=== PATIENT | female | born 1965 | race Caucasian/White ===

== ENCOUNTER → 2019-11-11 11:37 | Outpatient (CLI) | payer BC, SELFPAY ==
--- NOTE | 2019-11-11 | DI.MRI.S_ITS ---
PROCEDURE: MR LUMBAR SPINE WO CON INDICATIONS: Radiculopathy, lumbar region TECHNIQUE: Noncontrast sagittal T1 spin echo and T2 fast echo, sagittal STIR, axial T1 and T2 fast spin echo through the lumbar spine. In cases with scoliosis, additional coronal T2 fast spin echo may be performed. COMPARISON: None. FINDINGS: Image quality: Excellent. Alignment and Curvature: No plain films are available for comparison, for numbering purposes. Thus, for the purposes of this examination, 5 lumbar type vertebral bodies will be presumed, as denoted on the montage panel. This should be confirmed and correlated with plain films, prior to any lumbar spinal intervention. There is mild grade 1 retrolisthesis of L1 on L2. Bone Marrow: Marrow is of normal overall signal. No acute vertebral body compression fractures. Mild reactive signal within the endplates adjacent to the L1-L2 intervertebral disc. Spinal Cord: Conus medullaris terminates at the upper L2 level. Visualized cord demonstrates normal signal and size. Paraspinous Soft Tissues: No paravertebral masses. L1-L2: Moderate disc height loss and desiccation. Mild diffuse disc bulge. Mild facet and ligamentum flavum hypertrophy. Mild canal stenosis. Mild bilateral foraminal stenosis. L2-L3: Mild disc desiccation and diffuse disc bulge. Mild facet and ligamentum flavum hypertrophy. No significant canal stenosis. Mild bilateral foraminal stenosis. L3-L4: Mild disc desiccation and diffuse disc bulge. Mild facet and ligamentum flavum hypertrophy. Mild epidural lipomatosis. Mild canal stenosis. Mild bilateral foraminal stenosis. L4-L5: Mild disc desiccation and diffuse disc bulge. Mild facet and ligamentum flavum hypertrophy. Mild epidural lipomatosis. Mild canal stenosis. Moderate subarticular foraminal stenosis. L5-S1: Moderate bilateral facet hypertrophy. No significant canal stenosis. Mild bilateral foraminal stenosis. IMPRESSION: 1. Multilevel degenerative disc and facet disease, as well as ligamentum flavum hypertrophy and epidural lipomatosis. 2. Mild multilevel canal stenosis. 3. Multilevel foraminal stenosis, worst at L4-L5 bilaterally where there are moderate foraminal stenoses present. Dictated by: Arcadio Dillard M.D. on 11/11/2019 at 13:08 Approved by: Arcadio Dillard M.D. on 11/11/2019 at 13:10
== END ==
PROVIDERS: PCP Family Medicine; Referring Provider Family Medicine; Visit Provider Family Medicine
DX: M51.16 Intervertebral disc disorders with radiculopathy, lumbar region (principal); M48.061 Spinal stenosis, lumbar region without neurogenic claudication; M48.07 Spinal stenosis, lumbosacral region; E88.2 Lipomatosis, not elsewhere classified
CPT/HCPCS: 72148